=== PATIENT | female | born 1960 | race Caucasian/White ===

== ENCOUNTER 2017-02-28 13:14 | Emergency (ER) | payer BC, OTHER ==
--- NOTE | 2017-02-28 15:05 | EDPHY ---
H & P Time Seen by Provider: 02/28/17 15:04 HPI/ROS: Chief complaint. Visual disturbance HPI. 56-year-old female presents emergency department with visual disturbance to the right eye. Symptoms began around noon when she developed and noticed a black thread floating in her vision intermittently. She can still see it intermittently. It was then followed by flash of light in the upper outside corner of her eye which has continued intermittently. Left eye is normal. Her direct vision is normal. No similar symptoms previously. Slight pain to the right eye when she has the flash of light. No history of eye problems or eye surgery ROS Constitutional. no fever/chills, no weakness Eyes. Visual disturbance right eye ENT. no sore throat, no nasal drainage Cardiovascular. no chest pain Respiratory. no shortness of breath, no cough Abdominal. no abdominal pain, no nausea/vomiting, no diarrhea . no problems urinating MS. no calf pain/swelling, no neck/back pain, no joint pain Skin. no rash Lymph. no swollen glands Neuro. no headache, no dizziness, no difficulty walking or with speech Past Medical/Surgical History: Healthy Social History: , nonsmoker, no alcohol. Patient is visiting from [facility] Smoking Status: Never smoked Physical Exam: General Appearance: Alert well-developed female mild distress vital signs are stable Eyes: Pupils equal and round no pallor or injection. Funduscopic exam is normal. I do not see hemorrhage. Confrontation reveals no field deficits ENT, Mouth: Mucous membranes are moist. Respiratory: There are no retractions, lungs are clear to auscultation. Cardiovascular: Regular rate and rhythm. Gastrointestinal: Abdomen is soft and nontender, no masses, bowel sounds normal. Neurological: Awake and alert, sensory and motor exams grossly normal. Skin: Warm and dry, no rashes. Musculoskeletal: Neck is supple nontender. Extremities symmetrical, full range of motion. Psychiatric: Patient is oriented X 3, there is no agitation. Constitutional: Initial Vital Signs Temperature (C) 36.1 C 02/28/17 13:16 Heart Rate 71 02/28/17 13:16 Respiratory Rate 14 02/28/17 13:16 Blood Pressure 126/72 H 02/28/17 13:16 O2 Sat (%) 96 02/28/17 13:16 O2 Delivery Mode Room Air Allergies/Adverse Reactions: No Known Allergies Allergy (Verified 01/19/15 23:25) Home Medications: Medication Instructions Recorded Diazepam [Valium] 5 mg PO TID PRN #15 tab 01/20/15 Medical Decision Making Procedures: Visual acuity show right eye 2100 left eye 20/70. Both eyes 20/70. She uses glasses which he does not have with her ED Course/Re-evaluation: I consulted and discussed the case with Dr. Berg, ophthalmology. He recommends dilating both eyes with tropicamide. He will come see the patient in the emergency department 4:35 p.m.. Patient has been evaluated by Dr. Berg who confirms vitreous hemorrhage. No evidence for retinal detachment I re-evaluated the patient and answered any further questions. She is stable. She and I discussed diagnosis, treatment plan including criteria for return importance of follow-up further evaluation. She expresses understanding and agreement Differential Diagnosis: I considered vitreous hemorrhage, retinal detachment, hyphema - Data Points Medications Given: Discontinued Medications Tropicamide (Mydriacyl 1%) 1 drops EACHEYE ONCE ONE Stop: 02/28/17 15:29 Last Admin: 02/28/17 16:03 Dose: 2 dose Departure - Departure Disposition: Home, Routine, Self-Care Clinical Impression: Vitreous hemorrhage Qualifiers: Laterality: right Qualified Code(s): H43.11 - Vitreous hemorrhage, right eye Condition: Good Instructions: Retinal Hemorrhage (ED) Additional Instructions: Return for worsening symptoms. 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 Call Dr. Berg while here in [place] for the worsening symptoms Referrals: SANGITA PISANO [Other] - As per Instructions Aron Berg MD [Medical Doctor] - As per Instructions
[2017-02-28] MEDS ORDERED: TROPICAMIDE 1% 15 ML OPHT.BTL EACHEYE ONE (15:28)
[2017-02-28 17:05] VITALS: BP 149/83; PULSE 54; RESP 20; TEMP 98.4; O2SAT 94
--- NOTE | 2017-02-28 18:24 | GCON ---
[f rep st] CONSULTATION OPHTHALMOLOGY CONSULTATION REASON FOR CONSULTATION: Dr. Dylon Fenton from the [facility] Emergency Department asked me to see the patient because she started having flashing lights and floaters in her right. HISTORY OF PRESENT ILLNESS: A 56-year-old female who was seen in the Emergency Room at [facility] w ith right flashes and floaters that started today. They are intermittent, but continue. Left eye i s normal. Vision is not effected. No pain. No history of eye surgery or eye problems. She did rick ve a fall from a horse about 1 month ago, but did not notice any symptoms after that. REVIEW OF SYSTEMS: Normal review of systems other than her visual complaints. PAST SURGICAL HISTORY: None. PAST MEDICAL HISTORY: Healthy. SOCIAL HISTORY: , nonsmoker. Visiting from [place]. PHYSICAL EXAMINATION: EYES: Her visual acuity without glasses is 20/70 in the right eye, and 20/80 in the left eye. Pupils are equally round and reactive. Confrontational zheng are normal. Extra ocular muscles are normal. Eyelids are normal. Conjunctiva is quiet. Corneas are clear. Anterior chambers are deep. Iris is normal. LENS: She did have early cortical cataracts in both eyes. She was dilated with tropicamide at 4 o'clock and will stay dilated for the next 3-6 hours. On dilated fundus exam, her optic nerves were normal. 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 Vessels were normal. Vitreous showed a Padron ring in the right eye with a posterior vitreou s detachment. Left eye vitreous was normal. IMPRESSION: 1. Posterior vitreous detachment right eye. 2. Cataract both eyes. 3. Lattice degeneration both eyes. PLAN: Vitreous detachment was discussed with the patient. She understands that if she has any new flashing lights, floaters, or any loss of peripheral vision, she should call me as soon as possible. She will be driving back to [employer] on Thursday, and is cleared to do so if she does not hav e any worsening of her symptoms. Report was given to Dr. Fenton, and she will be discharged. /[id number]/MODL
== END 2017-02-28 17:05 | disposition home or self-care (01) ==
DX: H43.11 Vitreous hemorrhage, right eye (principal)